=== PATIENT | male | born 1975 | race American Indian/Alaskan Native ===

== ENCOUNTER 2017-08-30 20:04 | Emergency (ER) | payer MEDICAID ==
[2017-08-30 20:19] VITALS: BP 143/95; PULSE 78; RESP 16; TEMP 98.4; O2SAT 98
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
--- NOTE | 2017-08-31 10:19 | RAD ---
PROCEDURE: Cervical Spine Radiographs. HISTORY: Pain. COMPARISON: None. FINDINGS: BONES: Cervical lordotic straightening No fracture. Dens Intact. Anterior C5-C6 spondylosis. Anterior this vertebrae and bridging osteophyte. Bilateral C7 trace cervical rib formations DISC SPACES: C5-6 disc space narrowing SOFT TISSUES: Normal. No prevertebral soft tissue swelling. OTHER FINDINGS: None. IMPRESSION: No fracture or subluxation. C5-6 cervical spondylosis with intervening disc space narrowing C7 bilateral trace cervical rib formations
== END 2017-08-30 21:33 | disposition home or self-care (01) ==
LOC: ED 20:04
DX: S16.1XXA Strain of muscle, fascia and tendon at neck level, initial encounter (principal); X58.XXXA Exposure to other specified factors, initial encounter; Y93.9 Activity, unspecified; Y92.9 Unspecified place or not applicable; M54.9 Dorsalgia, unspecified

== ENCOUNTER 2017-09-05 22:03 | Emergency (ER) | payer MEDICAID ==
[2017-09-05 22:25] VITALS: BP 150/93; PULSE 60; RESP 16; TEMP 97.8; O2SAT 99
--- NOTE | 2017-09-05 22:50 | ED PDOC ---
Arrival/HPI - General Chief Complaint: Male Genitourinary Time Seen by Provider: 09/05/17 22:17 Historian: Patient - History of Present Illness Narrative History of Present Illness (Text): 09/05/17 22:50 Baldemar Alvarez is a 42 year old male who presents to the Emergency department for STI prophylaxis tonight. Patient states he was recently notified by his girlfriend that she was diagnosed with trichomonas. Patient states girlfriend was given antibiotics for both the patient and herself but she lives in [place] and he is unable to see her until later this week. Patient requesting Flagyl. Patient denies any fever, chills, nausea, vomiting, diarrhea , urinary symptoms, penile discharge, testicular pain, back pain, neck pain, headache, dizziness, or any other complaints. Symptom Onset: Gradual Symptom Course: Unchanged Activities at Onset: Light Context: Home Past Medical History - Provider Review Nursing Documentation Reviewed: Yes - Infectious Disease Hx of Infectious Diseases: None - Cardiac Hx Cardiac Disorders: Yes Hx Hypertension: Yes - Pulmonary Hx Respiratory Disorders: No - Neurological Hx Neurological Disorder: No - HEENT Hx HEENT Disorder: No - Renal Hx Renal Disorder: No - Endocrine/Metabolic Hx Endocrine Disorders: No - Hematological/Oncological Hx Blood Disorders: No - Integumentary Hx Dermatological Disorder: No - Musculoskeletal/Rheumatological Hx Musculoskeletal Disorders: Yes Hx Back Pain: Yes - Gastrointestinal Hx Gastrointestinal Disorders: No - Genitourinary/Gynecological Hx Genitourinary Disorders: No - Psychiatric Hx Psychophysiologic Disorder: No Hx Substance Use: No - Anesthesia Hx Anesthesia: No Family/Social History - Physician Review Nursing Documentation Reviewed: Yes Family/Social History: Unknown Family HX Smoking Status: Current Some Days Smoker Hx Alcohol Use: Yes Hx Substance Use: No Allergies/Home Meds Allergies/Adverse Reactions: Allergies No Known Allergies Allergy (Verified 09/05/17 22:36) Review of Systems - Physician Review All systems were reviewed & negative as marked: Yes - Review of Systems Constitutional: Normal. absent: Fevers Eyes: Normal ENT: Normal Respiratory: Normal. absent: SOB, Cough Cardiovascular: Normal. absent: Chest Pain Gastrointestinal: Normal. absent: Abdominal Pain, Diarrhea, Nausea, Vomiting Genitourinary Male: Normal. absent: Dysuria, Frequency, Hematuria, Urinary Output Changes Musculoskeletal: Normal. absent: Back Pain, Neck Pain Skin: Normal. absent: Rash Neurological: Normal. absent: Headache, Dizziness Endocrine: Normal Hemo/Lymphatic: Normal Psychiatric: Normal Physical Exam Vital Signs Reviewed: Yes Vital Signs Temp Pulse Resp BP Pulse Ox 09/05/17 22:23 97.8 F 60 16 150/93 H 99 Temperature: Afebrile Blood Pressure: Normal Pulse: Regular Respiratory Rate: Normal Appearance: Positive for: Well-Appearing, Non-Toxic, Comfortable Pain Distress: None Mental Status: Positive for: Alert and Oriented X 3 - Systems Exam Head: Present: Atraumatic, Normocephalic Pupils: Present: PERRL Extroacular Muscles: Present: EOMI Conjunctiva: Present: Normal Mouth: Present: Moist Mucous Membranes Neck: Present: Normal Range of Motion Respiratory/Chest: Present: Clear to Auscultation, Good Air Exchange. No: Respiratory Distress, Accessory Muscle Use Cardiovascular: Present: Regular Rate and Rhythm, Normal S1, S2. No: Murmurs Abdomen: Present: Normal Bowel Sounds. No: Tenderness, Distention, Peritoneal Signs Back: Present: Normal Inspection Upper Extremity: Present: Normal Inspection. No: Cyanosis, Edema Lower Extremity: Present: Normal Inspection. No: Edema Neurological: Present: GCS=15, CN II-XII Intact, Speech Normal Skin: Present: Warm, Dry, Normal Color. No: Rashes Psychiatric: Present: Alert, Oriented x 3, Normal Insight, Normal Concentration Medical Decision Making ED Course and Treatment: 09/05/17 22:50 Impression: 42 year old male presents for STD prophylaxis tonight. Requesting antibiotics. Differential Diagnosis included but are not limited to: STD prophylaxis Plan: -- Flagyl -- Reassess and disposition Progress Notes: Reevaluation: On reevaluation the patient is in no acute distress. I have discussed the results and plan with the patient, who expresses understanding. Patient given the opportunity to ask question, all questions were answered and there is agreement with the plan to discharge the patient home Patient is stable for discharge. Patient was instructed to follow up with physician/clinic in 1-2 days or return if symptoms persist/worsen or new concerning symptoms arise. 09/07/17 22:44 - Medication Orders Current Medication Orders: Discontinued Medications Metronidazole (Flagyl) 2,000 mg PO STAT STA PRN Reason: Protocol Stop: 09/05/17 22:47 Last Admin: 09/05/17 23:06 Dose: 2,000 mg - Scribe Statement The provider has reviewed the documentation as recorded by the Rocío Martinez Provider Scribe Attestation: All medical record entries made by the Scribe were at my direction and personally dictated by me. I have reviewed the chart and agree that the record accurately reflects my personal performance of the history, physical exam, medical decision making, and the department course for this patient. I have also personally directed, reviewed, and agree with the discharge instructions and disposition. Disposition/Present on Arrival - Present on Arrival Any Indicators Present on Arrival: No History of DVT/PE: No History of Uncontrolled Diabetes: No Urinary Catheter: No History of Decub. Ulcer: No History Surgical Site Infection Following: None - Disposition Have Diagnosis and Disposition been Completed?: Yes Diagnosis: Trichomonas contact, untreated Disposition: HOME/ ROUTINE Disposition Time: 23:40 Condition: GOOD Discharge Instructions (ExitCare): Trichomoniasis (ED) Forms: [employer] (Spanish)
== END 2017-09-05 23:40 | disposition home or self-care (01) ==
LOC: ED 22:03
DX: Z20.2 Contact with and (suspected) exposure to infections with a predominantly sexual mode of transmission (principal); I10 Essential (primary) hypertension

== ENCOUNTER 2018-01-06 10:45 | Emergency (ER) | payer MEDICAID, OTHER ==
[2018-01-06 11:05] VITALS: BP 145/93; PULSE 75; RESP 18; TEMP 98.1; O2SAT 99
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
== END 2018-01-06 11:44 | disposition home or self-care (01) ==
LOC: ED 10:45
DX: A59.9 Trichomoniasis, unspecified (principal)

== ENCOUNTER 2018-06-22 08:57 | Emergency (ER) | payer OTHER, MEDICAID ==
[2018-06-22 09:11] VITALS: BMI 26.6
[2018-06-22 09:21] VITALS: RESP 18; TEMP 98.4; O2SAT 100
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
[2018-06-22 10:27] VITALS: BP 137/73; PULSE 70
--- NOTE | 2018-06-22 10:36 | RAD ---
Date of service: 06/22/2018 PROCEDURE: Radiographs of the Lumbar Spine. HISTORY: back pain COMPARISON: No prior. FINDINGS: BONES: Normal alignment. No listhesis. No fracture. DISC SPACES: Unremarkable. OTHER FINDINGS: None. IMPRESSION: Unremarkable radiographs of the lumbar spine.
== END 2018-06-22 11:00 | disposition home or self-care (01) ==
LOC: ED 08:57
DX: M54.5 Low back pain (principal); I10 Essential (primary) hypertension

== ENCOUNTER 2018-08-20 09:39 | Emergency (ER) | payer MEDICAID, OTHER ==
[2018-08-20 09:39] VITALS: BMI 26.6
[2018-08-20 10:01] VITALS: BP 139/70
--- NOTE | 2018-08-20 10:05 | ED PDOC ---
Arrival/HPI - General Chief Complaint: Chest Pain Time Seen by Provider: 08/20/18 09:42 - History of Present Illness Narrative History of Present Illness (Text): 08/20/18 09:53 Past Medical History - Provider Review Nursing Documentation Reviewed: Yes - Infectious Disease Hx of Infectious Diseases: None - Cardiac Hx Cardiac Disorders: Yes Hx Hypertension: Yes - Pulmonary Hx Respiratory Disorders: No - Neurological Hx Neurological Disorder: No - HEENT Hx HEENT Disorder: No - Renal Hx Renal Disorder: No - Endocrine/Metabolic Hx Endocrine Disorders: No - Hematological/Oncological Hx Blood Disorders: No - Integumentary Hx Dermatological Disorder: No - Musculoskeletal/Rheumatological Hx Musculoskeletal Disorders: Yes Hx Back Pain: Yes - Gastrointestinal Hx Gastrointestinal Disorders: No - Genitourinary/Gynecological Hx Genitourinary Disorders: No - Psychiatric Hx Psychophysiologic Disorder: No Hx Substance Use: No - Anesthesia Hx Anesthesia: No Family/Social History - Physician Review Nursing Documentation Reviewed: Yes Family/Social History: Unknown Family HX Smoking Status: Current Some Days Smoker Hx Alcohol Use: Yes Hx Substance Use: No Allergies/Home Meds Allergies/Adverse Reactions: Allergies No Known Allergies Allergy (Verified 08/20/18 09:44) Home Medications: Home Meds Medication Instructions Recorded Confirmed No Known Home Med 08/20/18 08/20/18 Physical Exam Vital Signs Temp Pulse Pulse Resp BP BP Pulse Ox 08/20/18 10:01 98.6 F 67 14 139/70 100 08/20/18 09:44 66 139/70 Medical Decision Making ED Course and Treatment: 08/20/18 09:53 - RAD Interpretation Radiology Orders: 08/20/18 09:53 CHEST PORTABLE [RAD] Stat - Scribe Statement The provider has reviewed the documentation as recorded by the Rocío Martinez Provider Scribe Attestation: All medical record entries made by the Scribcassie were at my direction and personally dictated by me. I have reviewed the chart and agree that the record accurately reflects my personal performance of the history, physical exam, medical decision making, and the department course for this patient. I have also personally directed, reviewed, and agree with the discharge instructions and disposition. Disposition/Present on Arrival - Present on Arrival History of DVT/PE: No History of Uncontrolled Diabetes: No Urinary Catheter: No History of Decub. Ulcer: No History Surgical Site Infection Following: None - Disposition
[2018-08-20 10:18] LABS: BASO # 0.02 K/mm3 (0.0-2.0); BASO % 0.3 % (0.0-3.0); EOS # 0.1 (0.0-0.7); EOS % 1.7 % (1.5-5.0); GRAN # 3.02 (1.4-6.5); GRAN % 52.4 % (50.0-68.0); MEAN CELL VOLUME 89.5 fl (80.0-105.0); MEAN CORPUSCULAR HEMOGLOBIN 30.9 pg (25.0-35.0); MEAN CORPUSCULAR HGB CONC 34.6 g/dl (31.0-37.0); MEAN PLATELET VOLUME 11.5 fl (7.0-11.0); MONO # 0.6 (0.1-0.6); MONO % 10.6 % (1.0-6.0); RBC 4.85 10^6/uL (3.5-6.1); RED CELL DISTRIBUTION WIDTH 13.3 % (11.5-14.5); WHITE BLOOD COUNT 5.8 10^3/ul (4.5-11.0)
[2018-08-20 10:28] LABS: ALB/GLOB RATIO 1.3 (1.1-1.8); ALBUMIN 4.2 g/dL (3.0-4.8); ALT/SGPT 36 U/L (7-56); AST/SGOT 27 U/L (17-59); BLOOD UREA NITROGEN 8 mg/dL (7-21); GFR NON-AFRICAN AMERICAN > 60
--- NOTE | 2018-08-20 10:35 | RAD ---
Date of service: 08/20/2018 HISTORY: Chest pain. COMPARISON: No prior. FINDINGS: LUNGS: No active pulmonary disease. PLEURA: No significant pleural effusion identified, no pneumothorax apparent. CARDIOVASCULAR: No radiographic findings to suggest acute or significant cardiovascular disease. OSSEOUS STRUCTURES: No significant abnormalities. VISUALIZED UPPER ABDOMEN: Normal. OTHER FINDINGS: None. IMPRESSION: No active disease.
[2018-08-20 10:39] LABS: TROPONIN I < 0.01 ng/mL
[2018-08-20 10:44] LABS: CK-MB < 0.2 ng/mL (0.0-3.6)
--- NOTE | 2018-08-20 10:44 | ED PDOC ---
Arrival/HPI - History of Present Illness Narrative History of Present Illness (Text): 08/20/18 10:34 Pt is a 43 yo M with pmhx of HTN who presents for L sided chest pain that is non-radiating. Pt states that yesterday he was sitting at his work orientation when he stood up and noticed a tightness in his chest. He had a similar episode of chest pain and tightness last week which resolved spontaneously. He states that he had coffee and greasy fast food yesterday. He states that the pain is a 7/10 and localizes the pain to the L midclavicular line down to the 5th-6th ribs. He denies radiation of the pain to the neck, jaw, back or down L arm, denies worsening of the pain with exertion and denies any postural improvement to the pain. He denies any nausea, vomiting, lightheadedness, weakness, headache, palpitations, SOB, cough, wheezing, abd pain, or dysuria. Pmhx: HTN Pshx: None Meds: None All: NKDA Social: Smokes 1-2 cigs/day, denies etoh use or illicit drug use Fam Hx: Denies <Tonia Jacobs - Last Filed: 08/20/18 11:01> <Jose Knox DO - Last Filed: 08/20/18 17:59> - General Chief Complaint: Chest Pain Time Seen by Provider: 08/20/18 09:42 Past Medical History - Provider Review Nursing Documentation Reviewed: Yes - Infectious Disease Hx of Infectious Diseases: None - Cardiac Hx Cardiac Disorders: Yes Hx Hypertension: Yes - Pulmonary Hx Respiratory Disorders: No - Neurological Hx Neurological Disorder: No - HEENT Hx HEENT Disorder: No - Renal Hx Renal Disorder: No - Endocrine/Metabolic Hx Endocrine Disorders: No - Hematological/Oncological Hx Blood Disorders: No - Integumentary Hx Dermatological Disorder: No - Musculoskeletal/Rheumatological Hx Musculoskeletal Disorders: Yes Hx Back Pain: Yes - Gastrointestinal Hx Gastrointestinal Disorders: No - Genitourinary/Gynecological Hx Genitourinary Disorders: No - Psychiatric Hx Psychophysiologic Disorder: No Hx Substance Use: No - Anesthesia Hx Anesthesia: No <Tonia Jacobs - Last Filed: 08/20/18 11:01> Family/Social History - Physician Review Nursing Documentation Reviewed: Yes Family/Social History: No Known Family HX Smoking Status: Current Some Days Smoker Hx Alcohol Use: Yes Hx Substance Use: No <Tonia Jacobs - Last Filed: 08/20/18 11:01> Allergies/Home Meds <Tonia Jacobs - Last Filed: 08/20/18 11:01> <Jose Knox DO - Last Filed: 08/20/18 17:59> Allergies/Adverse Reactions: Allergies No Known Allergies Allergy (Verified 08/20/18 09:44) Home Medications: Home Meds Medication Instructions Recorded Confirmed No Known Home Med 08/20/18 08/20/18 Review of Systems - Physician Review All systems were reviewed & negative as marked: Yes - Review of Systems Respiratory: absent: SOB, Cough Cardiovascular: Chest Pain. absent: Palpitations <Tonia Jacobs - Last Filed: 08/20/18 11:01> Physical Exam Vital Signs Reviewed: Yes Vital Signs Temp Pulse Pulse Resp BP BP Pulse Ox 08/20/18 10:01 98.6 F 67 14 139/70 100 08/20/18 09:44 66 139/70 Temperature: Afebrile Blood Pressure: Normal Pulse: Regular Respiratory Rate: Normal Appearance: Positive for: Well-Appearing, Non-Toxic, Comfortable Pain Distress: None Mental Status: Positive for: Alert and Oriented X 3 - Systems Exam Head: Present: Atraumatic, Normocephalic Pupils: Present: PERRL Extroacular Muscles: Present: EOMI Mouth: Present: Moist Mucous Membranes Respiratory/Chest: Present: Clear to Auscultation, Good Air Exchange, Tender to Palpation (on the L side midclavicular line 4-5th ribs where pt was describing the pain.). No: Respiratory Distress, Accessory Muscle Use, Wheezes Cardiovascular: Present: Regular Rate and Rhythm, Normal S1, S2. No: Murmurs, Rub, Gallop Abdomen: Present: Normal Bowel Sounds. No: Tenderness, Distention, Peritoneal Signs, Rebound, Guarding Lower Extremity: Present: Normal Inspection, Neurovascularly Intact. No: Edema, CALF TENDERNESS Neurological: Present: GCS=15, CN II-XII Intact, Speech Normal Skin: Present: Warm, Dry, Normal Color. No: Rashes Psychiatric: Present: Alert, Oriented x 3, Normal Insight, Normal Concentration, Normal Affect, Normal Mood <Tonia Jacobs - Last Filed: 08/20/18 11:01> Vital Signs Temp Pulse Pulse Resp BP BP Pulse Ox 08/20/18 10:01 98.6 F 67 14 139/70 100 08/20/18 09:44 66 139/70 <Jose Knox DO - Last Filed: 08/20/18 17:59> Medical Decision Making ED Course and Treatment: 08/20/18 10:50 Pt is a 43 yo M with pmhx detailed above who presents for L side chest tightness and pain without radiation and not changed with exertion, or position. He has had similar episodes in the past that were self resolving. - CBC - CMP - Trops - Mag - CXR - EKG 08/20/18 10:51 Progress Note: CBC, CMP returned with no remarkable lab values to explain the chest pain. Pts EKG was NSR with HR at 63. Trops returned <.01. CXR showed no acute pathology. Discussed results with pt and informed pt to follow up with PMD and return to ER if chest pain is worsening or has any new acute symptoms. - Lab Interpretations Lab Results: 08/20/18 09:54 08/20/18 09:54 Lab Results 08/20/18 09:54: Sodium 138, Potassium 4.3, Chloride 104, Carbon Dioxide 29, Anion Gap 9 L, BUN 8, Creatinine 1.2, Est GFR ( Amer) > 60, Est GFR (Non- Af Amer) > 60, Random Glucose 93, Calcium 9.0, Magnesium 2.1, Total Bilirubin 1.4 H, AST 27, ALT 36, Alkaline Phosphatase 87, Lactate Dehydrogenase 380, Total Creatine Kinase 241 H, CK-MB (CK-2) Pending, CK-MB (CK-2) % Pending, Troponin I Pending, Total Protein 7.4, Albumin 4.2, Globulin 3.3, Albumin/Globulin Ratio 1.3 08/20/18 09:54: WBC 5.8, RBC 4.85, Hgb 15.0, Hct 43.4, MCV 89.5, MCH 30.9, MCHC 34.6, RDW 13.3, Plt Count 270, MPV 11.5 H, Gran % 52.4, Lymph % (Auto) 35.0, [place] % (Auto) 10.6 H, Eos % (Auto) 1.7, Baso % (Auto) 0.3, Gran # 3.02, Lymph # (Auto) 2.0, [place] # (Auto) 0.6, Eos # (Auto) 0.1, Baso # (Auto) 0.02 - RAD Interpretation Radiology Orders: 08/20/18 09:53 CHEST PORTABLE [RAD] Stat <Tonia Jacobs - Last Filed: 08/20/18 11:01> ED Course and Treatment: Impression: Patient Seen with Resident: In agreement with resident note which contains more details about the patient. Patient seen and evaluated with resident. Came up with plan and treatment together. Pt, whose past medical history includes hypertension, presented for left-sided chest pain. Plan: -- EKG -- Chest X-ray -- Labs, cardiac enzymes -- Toradol -- Reassess and disposition - Lab Interpretations Lab Results: 08/20/18 09:54 08/20/18 09:54 Lab Results 08/20/18 09:54: Sodium 138, Potassium 4.3, Chloride 104, Carbon Dioxide 29, Anion Gap 9 L, BUN 8, Creatinine 1.2, Est GFR ( Amer) > 60, Est GFR (Non- Af Amer) > 60, Random Glucose 93, Calcium 9.0, Magnesium 2.1, Total Bilirubin 1.4 H, AST 27, ALT 36, Alkaline Phosphatase 87, Lactate Dehydrogenase 380, Total Creatine Kinase 241 H, CK-MB (CK-2) < 0.2, CK-MB (CK-2) % Cancelled, Troponin I < 0.01, Total Protein 7.4, Albumin 4.2, Globulin 3.3, Albumin/Globulin Ratio 1.3 08/20/18 09:54: WBC 5.8, RBC 4.85, Hgb 15.0, Hct 43.4, MCV 89.5, MCH 30.9, MCHC 34.6, RDW 13.3, Plt Count 270, MPV 11.5 H, Gran % 52.4, Lymph % (Auto) 35.0, [place] % (Auto) 10.6 H, Eos % (Auto) 1.7, Baso % (Auto) 0.3, Gran # 3.02, Lymph # (Auto) 2.0, [place] # (Auto) 0.6, Eos # (Auto) 0.1, Baso # (Auto) 0.02 I have reviewed the lab results: Yes - RAD Interpretation Radiology Orders: 08/20/18 09:53 CHEST PORTABLE [RAD] Stat - EKG Interpretation Interpreted by ED Physician: Yes Type: 12 lead EKG - Medication Orders Current Medication Orders: Discontinued Medications Ketorolac Tromethamine (Toradol) 30 mg IVP STAT STA Stop: 08/20/18 10:40 Last Admin: 08/20/18 10:45 Dose: 30 mg MAR Pain Assessment Document 08/20/18 10:45 [email or web address] (Rec: 08/20/18 10:46 [email or web address] [id number]) Pain Reassessment Is this a pain reassessment? No Sleep Is patient sleeping during reassessment? No Presence of Pain Presence of Pain Yes Pain Scale Used Protocol: PSCALES Pain Scale Used Numeric Location Left, Right or Bilateral Left Pain Location Body Site Chest Description Description Constant Intensity of Pain at present 8 Pain Behavior Facial Grimacing Aggravating Factors Changing Position Alleviating Factors/Management Medication Techniques Alleviating Factors Medication IVP Administration Document 08/20/18 10:45 [email or web address] (Rec: 08/20/18 10:46 [email or web address] [id number]) Charges for Administration # of IVP Administrations 1 <Jose Knox DO - Last Filed: 08/20/18 17:59> - PA / [employer] SALES ASSISTANT / Resident Statement / has reviewed & agrees with the documentation as recorded. / has examined the patient and agrees with the treatment plan. - Scribe Statement The provider has reviewed the documentation as recorded by the Rocío Martinez Provider Scribe Attestation: All medical record entries made by the Rocío were at my direction and personally dictated by me. I have reviewed the chart and agree that the record accurately reflects my personal performance of the history, physical exam, medical decision making, and the department course for this patient. I have also personally directed, reviewed, and agree with the discharge instructions and disposition. <Jose Knox DO - Last Filed: 08/20/18 17:59> Disposition/Present on Arrival - Present on Arrival Any Indicators Present on Arrival: No History of DVT/PE: No History of Uncontrolled Diabetes: No Urinary Catheter: No History of Decub. Ulcer: No History Surgical Site Infection Following: None - Disposition Have Diagnosis and Disposition been Completed?: Yes Disposition Time: 10:54 <Tonia Jacobs - Last Filed: 08/20/18 11:01> - Disposition Disposition Time: 10:35 <Jose Knox DO - Last Filed: 08/20/18 17:59> - Disposition Diagnosis: Non-cardiac chest pain Disposition: HOME/ ROUTINE Condition: GOOD Discharge Instructions (ExitCare): Chest Pain That Is Not Caused by the Heart (DC), Chest Pain (ED) Additional Instructions: KIRAN FRIEDMAN, thank you for letting us take care of you today. The emergency medical care you received today was directed at your acute symptoms. If you were prescribed any medication, please fill it and take as directed. It may take several days for your symptoms to resolve. Return to the Emergency Department if your symptoms worsen, do not improve, or if you have any other problems. Please contact your doctor or call one of the physicians/clinics you have been referred to that are listed on the Patient Visit Information form that is included in your discharge packet. Bring any paperwork you were given at discharge with you along with any medications you are taking to your follow up visit. Our treatment cannot replace ongoing medical care by a primary care provider outside of the emergency department. Thank you for allowing the [facility] team to be part of your care today. Follow up with your primary care doctor or our clinic this week for outpatient care and further management. Referrals: [facility] [Outside] - Follow up with primary Carie Nunez MD [Medical Doctor] - Follow up with primary Forms: [employer] (Austrian)
[2018-08-20 10:59] VITALS: PULSE 68; RESP 19; TEMP 98.4; O2SAT 97
--- NOTE | 2018-08-21 09:24 | CARD ---
APPROVED REPORT Date of service: 08/20/2018 EKG Measurement Heart [id number] <Conclusion> Normal sinus rhythm Normal ECG
== END 2018-08-20 10:58 | disposition home or self-care (01) ==
LOC: ED 09:39
DX: R07.89 Other chest pain (principal); I10 Essential (primary) hypertension; F17.210 Nicotine dependence, cigarettes, uncomplicated
CPT/HCPCS: 71045; 80053; 82550; 82553; 83615; 83735; 84484; 85025; 93005; 96374; 99283; J1885